=== PATIENT | female | born 1950 | race Caucasian/White ===

== ENCOUNTER → 2016-09-04 | Outpatient (CLI) | payer OTHER ==
[~2016-09-04] MED LIST: ARTHRITIS PAIN650 M3 PO; CELEXA; CHEWABLE ASPIRI81 MG; CIPRO PO; CITALOPRAM HBR40 MG PO; DOCU SOFT100 M1 PO; EFFEXOR37.5 MG PO; FERROUS SULFAT325 MG PO; FERROUS SULFATE PO; FISH OIL 1,0001 CAP PO; IRON160 M1; LISINOPRIL10 MG PO; LORCET PLUS 7.1 EACH PO; POLY IRON PO; SIMVASTATIN40 MG PO; STOOL SOFTENER100 M1 PO; TRIAMTERENE-HC1 EACH PO; TRIAMTERENE/HCT1 TA3 PO; VITAMIN D350000 UNIT PO; VOLTAREN75 MG PO
--- NOTE | ~2016-09-04 | US85 ---
[facility] A Service of [facility] RADIOLOGY TEXT RESULTS PATIENT: SHAE CONTRERAS LOCATION: SNIV : 51 UNIT #: [id number] AGE: [address]: Sugey Lion MD SEX: F ORDER DR: [id number] [place] [address] [id number] O MR#: [id number] Acc #: [id number] NAME: SHAE CONTRERAS : 1950 SEX: F STUDY DATE/TIME: 09/04/2016 17:08 UNIT: [facility] ROOM: STUDY DESCRIPTION: [facility] Attending Physician: Sugey Lion M.D. Referring Physician: Sugey Lion M.D. Ordering Physician: Sugey Lion M.D. Primary Care Physician: Chuckie Tee M.D. MEDICAL IMAGING REPORT This report is preliminary unless electronic signature is present. EXAM Left lower extremity venous duplex Doppler, 09/04/2016 INDICATION Left extremity pain and swelling for 3-4 days. COMPARISON None available. TECHNIQUE Venous ultrasound examination of the left lower extremity was performed using grayscale, spectral Doppler and color flow Doppler imaging. FINDINGS The examination is negative. There is no evidence of left lower extremity deep venous thrombus from the groin to the lower calf. Visualized greater saphenous vein is also patent. IMPRESSION Negative examination. No evidence of left lower extremity deep venous thrombosis. Dictated by... Lj Partida M.D. THIS IS AN ELECTRONICALLY VERIFIED REPORT Lj Partida M.D. at 09/04/2016 10:08 PM ANGEL/josh TD: 09/04/2016 21:58 [facility] A Service [facility] RADIOLOGY TEXT RESULTS PATIENT: SHAE CONTRERAS LOCATION: SN[facility] : 51 UNIT #: [id number] AGE: [address]: Sugey Lion MD SEX: F ORDER DR: JOB #: [id number] MEDICAL IMAGING REPORT Page 1 of 1
== END | disposition home or self-care (01) ==
LOC: SNIV 16:03
DX: M79.605 Pain in left leg (principal); M79.89 Other specified soft tissue disorders
CPT/HCPCS: 93971

== ENCOUNTER 2016-10-01 16:15 | Emergency (ER) | payer OTHER ==
[~2016-10-01 16:15] MED LIST changes: -CELEXA; -EFFEXOR37.5 MG PO; -FERROUS SULFAT325 MG PO; -LORCET PLUS 7.1 EACH PO; -POLY IRON PO; -STOOL SOFTENER100 M1 PO; -TRIAMTERENE-HC1 EACH PO; -VITAMIN D350000 UNIT PO; -VOLTAREN75 MG PO
[2016-10-31] MEDS ORDERED: VOLTAREN75 MG PO (09:41)
[2016-10-31] MEDS ORDERED: CELEXA (15:36)
[2016-12-20] MEDS ORDERED: VITAMIN D350000 UNIT PO (15:59)
[2016-12-20] MEDS ORDERED: TRIAMTERENE-HC1 EACH PO (16:01)
[2016-12-20] MEDS ORDERED: POLY IRON PO (16:01)
[2016-12-20] MEDS ORDERED: STOOL SOFTENER100 M1 PO (16:01)
[2016-12-20] MEDS ORDERED: FERROUS SULFAT325 MG PO (16:02)
[2016-12-20] MEDS ORDERED: LORCET PLUS 7.1 EACH PO (16:02)
[2016-12-20] MEDS ORDERED: EFFEXOR37.5 MG PO (16:03)
[2016-12-22] MEDS ORDERED: LISINOPRIL10 MG PO (12:32)
== END 2016-10-01 16:43 | disposition home or self-care (01) ==
LOC: SED 16:15
DX: M17.12 Unilateral primary osteoarthritis, left knee (principal); I10 Essential (primary) hypertension; E66.9 Obesity, unspecified; Z87.891 Personal history of nicotine dependence; Z88.5 Allergy status to narcotic agent; Z79.82 Long term (current) use of aspirin
CPT/HCPCS: 29530; 99283

== ENCOUNTER → 2016-10-13 | Outpatient (CLI) | payer OTHER ==
[~2016-10-13] MED LIST changes: +CELEXA; +EFFEXOR37.5 MG PO; +FERROUS SULFAT325 MG PO; +LORCET PLUS 7.1 EACH PO; +POLY IRON PO; +STOOL SOFTENER100 M1 PO; +TRIAMTERENE-HC1 EACH PO; +VITAMIN D350000 UNIT PO; +VOLTAREN75 MG PO
--- NOTE | ~2016-10-13 | CR169 ---
[facility]. [facility] A Service of [facility] RADIOLOGY TEXT RESULTS PATIENT: SHAE CONTRERAS LOCATION: [facility] : 51 UNIT #: [id number] AGE: [address]: Morteza Flores MD SEX: F ORDER DR: [id number] [address] [address] [id number] O MR#: [id number] Acc #: [id number] NAME: SHAE CONTRERAS : 1950 SEX: F STUDY DATE/TIME: 10/13/2016 12:33 UNIT: [facility] ROOM: STUDY DESCRIPTION: CR Knee 2 Views Lt Attending Physician: Morteza Flores M.D. Referring Physician: Morteza Flores M.D. Ordering Physician: Morteza Flores M.D. Primary Care Physician: Chuckie Tee M.D. MEDICAL IMAGING REPORT This report is preliminary unless electronic signature is present. EXAM Left knee, 2 views. DATE OF EXAM 10/13/2016 HISTORY Left knee pain and swelling since 09/04/2016. Osteoarthritis left knee. FINDINGS 2 views of the left knee demonstrate no fracture. There is degenerative change with mild narrowing of the medial compartment of the knee. There is small osteophytes extending off the lateral femoral condyle and the posterior aspect of the patella. There is a small knee joint effusion. IMPRESSION 1. Mild degenerative change involving the left knee. No evidence of fracture. 2. Small knee joint effusion. Dictated by... Andrew Monroe M.D. THIS IS AN ELECTRONICALLY VERIFIED REPORT Andrew Monroe M.D. at 10/17/2016 9:19 AM GER/sarai TD: 10/13/2016 21:27 JOB #: [id number] MEDICAL IMAGING REPORT Page 1 of 1
== END | disposition home or self-care (01) ==
LOC: SRAD 12:17
DX: M17.12 Unilateral primary osteoarthritis, left knee (principal); M25.462 Effusion, left knee
CPT/HCPCS: 73560

== ENCOUNTER → 2016-10-31 | Day surgery (SDC) | payer MEDICARE ==
--- NOTE | ~2016-10-31 | OR ---
Unit #: [id number] #: [id number] Patient: SHAE CONTRERAS [id number] [address] [address] [id number] O MR#: [id number] NAME: SHAE CONTRERAS ROOM: Date of Procedure: 10/31/2016 Admission Date: 10/31/2016 Surgeon: Jasen Salcedo M.D. : 1950 Attending Physician: Jasen Salcedo M.D. Referring Physician: Jasen Salcedo M.D. Primary Care Physician: Chuckie Tee M.D. PROCEDURE OPERATIVE NOTE PROCEDURE PERFORMED Colonoscopy to cecum. INDICATIONS Average risk for colorectal cancer. MEDICATIONS Monitored anesthesia. POSTOPERATIVE FINDINGS Normal exam to cecum, good prep. PLAN Repeat colonoscopy in 10 years. DESCRIPTION OF PROCEDURE Patient was explained all the procedure risks and benefits along with risks and benefits of anesthesia. She was brought to the endoscopy room. Propofol anesthesia was given. Rectal exam was done which was normal. Colonoscope was lubricated, passed through the rectum, advanced in the rectum all the way to cecum. Cecum was identified by ileocecal valve and appendiceal orifice. I then tried to pull the scope out, carefully looking. No polyps, masses, or colitis was seen. The mucosa was normal and healthy. I retroflexed in the rectum. Small hemorrhoids seen. Gently, the scope was pulled out. She tolerated it well. No immediate complications were seen. Dictated by... Herve Weinstein/cydney TD: 10/31/2016 12:53 JOB #: [id number] Unit #: [id number] #: [id number] Patient: SHAE CONTRERAS PROCEDURE OPERATIVE NOTE Page 1 of 1 X Jasen Salcedo MD X PROCEDURE OPERATIVE NOTE
== END | disposition home or self-care (01) ==
LOC: COPS 08:43
DX: Z12.11 Encounter for screening for malignant neoplasm of colon (principal); K64.9 Unspecified hemorrhoids; Z86.010 Personal history of colon polyps; Z98.1 Arthrodesis status; Z90.49 Acquired absence of other specified parts of digestive tract; Z98.51 Tubal ligation status; Z88.6 Allergy status to analgesic agent

== ENCOUNTER → 2016-11-24 | Outpatient (CLI) | payer MEDICARE ==
--- NOTE | ~2016-11-24 | MR103 ---
[facility] A Service [facility] RADIOLOGY TEXT RESULTS PATIENT: SHAE CONTRERAS [facility] UNIT #: [id number] AGE: [address]: Sugey Lion MD SEX: F ORDER DR: [id number] [facility] [address] [place], [place] [address] [id number] O MR#: [id number] Acc #: [id number] NAME: SHAE CONTRERAS. : 1950 SEX: F STUDY DATE/TIME: 11/24/2016 19:42 UNIT: [facility] ROOM: STUDY DESCRIPTION: MR Knee Wo Contrast Lt Attending Physician: Sugey Lion M.D. Referring Physician: Sugey Lion M.D. Ordering Physician: Sugey Lion M.D. Primary Care Physician: Chuckie Tee M.D. MRI CENTER REPORT This report is preliminary unless electronic signature is present. EXAM Left knee MRI without contrast 11/24/2016 HISTORY 66-year-old female with bilateral knee pain since 09/04/2016. No prior left knee surgery. COMPARISON Left knee x-rays 10/13/2016 TECHNIQUE Routine unenhanced multiplanar, multisequence high field MR imaging of the left knee was performed. FINDINGS There is a vertical radial tear of the posterior horn/posterior root of the medial meniscus resulting in partial extrusion of the body segment from the medial joint line. Lateral meniscus appears intact. Cruciate and collateral ligaments are intact. Extensor mechanism intact. Small to moderate joint effusion. There is a small popliteal cyst measuring 4.5 cm in length. There is low grade chondromalacia throughout patellofemoral joint. Lateral compartment articular cartilage is intact. There is moderately extensive full-thickness articular cartilage loss along the weightbearing surfaces of the medial compartment with reactive subchondral marrow edema in the medial femoral condyle and medial tibial plateau. Remainder of the bone marrow signal is within normal limits. Visualized musculature is unremarkable. Prominent superficial venous varicosities along the medial aspect of the knee. [facility] A Service [facility] RADIOLOGY TEXT RESULTS PATIENT: SHAE CONTRERAS LOCATION: [facility] : 51 UNIT #: [id number] AGE: [address]: Sugey Lion MD SEX: F ORDER DR: IMPRESSION 1. Vertical radial tear involving the posterior horn/posterior root of the medial meniscus resulting in partial extrusion of the body segment from the medial joint line. 2. No acute ligament injury. 3. Moderately advanced medial compartment arthrosis, detailed above. 4. Small to moderate joint effusion with a 4.5 cm popliteal cyst. 5. 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 6. Prominent venous varicosities along the medial aspect of the knee. Dictated by... Rayo Herbert M.D. THIS IS AN ELECTRONICALLY VERIFIED REPORT Rayo Herbert M.D. at 11/27/2016 6:29 PM ANGELICA/mauro TD: 11/27/2016 16:54 JOB #: [id number] MRI CENTER REPORT Page 1 of 1 COPY
--- NOTE | ~2016-11-24 | MR104 ---
[facility] A Service [facility] RADIOLOGY TEXT RESULTS PATIENT: SHAE CONTRERAS [facility] UNIT #: [id number] AGE: [address]: Sugey Lion MD SEX: F ORDER DR: [id number] [facility] [address] [place], [place] [address] [id number] O MR#: [id number] Acc #: [id number] NAME: SHAE CONTRERAS. : 1950 SEX: F STUDY DATE/TIME: 11/24/2016 20:28 UNIT: [facility] ROOM: STUDY DESCRIPTION: MR Knee Wo Contrast Rt Attending Physician: Suegy Lion M.D. Referring Physician: Sugey Lion M.D. Ordering Physician: Sugey Lion M.D. Primary Care Physician: Chuckie Tee M.D. MRI CENTER REPORT This report is preliminary unless electronic signature is present. EXAM Right knee MRI without contrast 11/24/2016 HISTORY 66-year-old female with bilateral knee pain since 09/04/2016. No prior right knee surgery COMPARISON STUDIES Comparison none. TECHNIQUE Routine unenhanced multiplanar, multisequence high field MR imaging of the right knee was performed. FINDINGS There is degenerative vertical radial tear of the posterior horn of medial meniscus near the posterior root. This results in partial extrusion of the body segment from the medial joint line. Lateral meniscus appears intact. Cruciate and collateral ligaments are intact. Extensor mechanism is intact. Small to moderate joint effusion. There is a popliteal cyst measuring 4.7 cm in length. There is fluid tracking along posterior fascial planes of the leg suggesting popliteal cyst rupture. Low grade chondromalacia noted throughout the patellofemoral joint. Lateral compartment articular cartilage is intact. There is high-grade chondromalacia along the weightbearing surfaces in the medial compartment with reactive subchondral marrow edema in the medial femoral condyle and medial tibial plateau. [facility] A Service [facility] RADIOLOGY TEXT RESULTS PATIENT: SHAE CONTRERAS [facility] UNIT #: [id number] AGE: [address]: Sugey Lion MD SEX: F ORDER DR: Remainder of the bone marrow signal is within expected limits. Visualized musculature is unremarkable. IMPRESSION 1. Degenerative vertical radial tear posterior horn medial meniscus near the posterior root. This results in partial extrusion of the body segment from the medial joint line. 2. No acute ligament injury. 3. Moderately advanced medial compartment arthrosis, detailed above. 4. Low grade patellofemoral chondromalacia. 5. Small to moderate joint effusion, with a 4.7 cm popliteal cyst. There is a small amount of fluid tracking along the posterior fascial planes of the leg, suggesting popliteal cyst rupture. Dictated by... Rayo Herbert M.D. THIS IS AN ELECTRONICALLY VERIFIED REPORT Rayo Herbert M.D. at 11/27/2016 6:29 PM Nessa TD: 11/27/2016 16:49 JOB #: [id number] MRI CENTER REPORT Page 1 of 1 COPY
== END | disposition home or self-care (01) ==
LOC: CMRI 18:33
DX: M25.561 Pain in right knee (principal); M25.562 Pain in left knee; M23.321 Other meniscus derangements, posterior horn of medial meniscus, right knee; M94.261 Chondromalacia, right knee; M25.461 Effusion, right knee; M71.21 Synovial cyst of popliteal space [Baker], right knee; M23.222 Derangement of posterior horn of medial meniscus due to old tear or injury, left knee; M17.0 Bilateral primary osteoarthritis of knee; M25.462 Effusion, left knee; M71.22 Synovial cyst of popliteal space [Baker], left knee; M94.262 Chondromalacia, left knee; I83.92 Asymptomatic varicose veins of left lower extremity
CPT/HCPCS: 73721

== ENCOUNTER → 2016-12-22 | Day surgery (SDC) | payer MEDICARE ==
--- NOTE | ~2016-12-22 | OR ---
Unit #: [id number] #: [id number] Patient: SHAE CONTRERAS T [id number] [address] [place], [place] [address] [id number] O MR#: [id number] NAME: SHAE CONTRERAS ROOM: Date of Procedure: 12/22/2016 Admission Date: 12/22/2016 Surgeon: Morteza Flores M.D. : 1950 Attending Physician: Morteza Flores M.D. Primary Care Physician: Chuckie Tee M.D. OPERATIVE REPORT PREOPERATIVE DIAGNOSES Torn meniscus and degenerative joint disease, right knee. POSTOPERATIVE DIAGNOSES AND FINDINGS 1. Grade 2 to 3 chondromalacia involving the central and medial facet of the patella and grade 2 to 3 chondromalacia involving the trochlea of the femur. 2. Grade 2 to 3 chondromalacia medial compartment. 3. Radial and flap tear involving the posterior third of the medial meniscus. PROCEDURES PERFORMED Arthroscopy, partial medial meniscectomy, and chondroplasty, right knee. HISTORY AND FINDINGS The patient is a 66-year-old, who has been having progressively increasing pain in her right knee with swelling. She had been treated conservatively with medications and injections, and subsequently had MRI which was suggestive of meniscus tear and DJD. As she failed conservative measures, she wants to proceed with arthroscopic evaluation. Procedure was explained including risks of anesthesia and complications of surgery like infection, neurovascular injury, residual symptoms, need for further surgery, also postoperative complications like DVT, residual symptoms, need for further surgery have been explained. She voices understanding and wishes to proceed. DESCRIPTION OF PROCEDURE After induction of general anesthesia, the patient's right knee was examined to varus and valgus stress and was found to be stable in extension and 30 degrees of flexion. The Fer and the pivot shift tests were negative. Then, the right knee was prepped and draped in the usual sterile manner. Time-out was called. Operative site was confirmed after infiltrating the knee joint with 1% Xylocaine with epinephrine. Through a parapatellar tendon approach, arthroscopy was performed. The suprapatellar pouch in the medial and lateral gutter was found to be normal. There were some free chondral fragments floating otherwise unremarkable. The patellar undersurface and the trochlea of the femur were checked revealed grade 2 to 3 chondromalacic changes. The patellar tracking was normal. Medial compartment was checked. Medial compartment revealed a grade 2 to 3 chondromalacic changes involving the weightbearing surface of the medial femoral and tibial condyles. Medial meniscus was probed and was grossly intact except at the posterior third, where there Unit #: [id number] #: [id number] Patient: SHAE CONTRERAS was a radial tear with a flap fragment and the meniscus had a degenerative component to it, so using arthroscopic punch shaver, a partial medial meniscectomy was performed. The remaining meniscus was probed. It was found to be stable. Then using a radiofrequency wand, the chondral surface of the medial compartment was shaved to a smooth stable surface, and the meniscus margin were also stabilized using a wand. Intercondylar notch was checked. ACL and PCL were found to be intact. Lateral compartment was found to be essentially normal. Lateral meniscus was probed and was found to be intact. Then, attention was turned towards the patellofemoral compartment. The patellofemoral compartment was shaved using the radiofrequency wand and the knee joint was thoroughly irrigated. All loose chondral and meniscal fragments were irrigated out and about 20 mL of Marcaine with 80 mg of Depo-Medrol was injected into the knee and 5 mL of Marcaine was injected into the operative portal. Wound was closed with 4-0 nylon. Sterile compression dressing was applied. Blood loss approximately 10 mL. The patient received preoperative antibiotics. No tourniquet was used. She tolerated the procedure well and was transferred to the recovery room in satisfactory condition. POSTOPERATIVE INSTRUCTIONS 1. Ice packs to the left knee and partial weightbearing ambulation with crutches. 2. Percocet 5 mg p.o. q.6 hours p.r.n. and Coumadin 2.5 mg once daily and she will have a PT/INR on 12/27/2016. 3. She was given a followup appointment. Return to my office in one week. If any problems, to contact me. Dictated by... Herve Zuleta/lisa TD: 12/22/2016 19:25 JOB #: [id number] OPERATIVE REPORT Page 1 of 1 X Morteza Flores MD PROCEDURE OPERATIVE NOTE
--- NOTE | ~2016-12-22 | CR63 ---
[facility] A Service of [facility] RADIOLOGY TEXT RESULTS PATIENT: SHAE CONTRERAS LOCATION: [facility] : 51 UNIT #: [id number] AGE: [address]: Morteza Flores MD SEX: F ORDER DR: [id number] [facility] [address] [place], [place] [address] [id number] O MR#: [id number] Acc #: [id number] NAME: SHAE CONTRERAS : 1950 SEX: F STUDY DATE/TIME: 12/22/2016 13:01 UNIT: [facility] ROOM: STUDY DESCRIPTION: CR Chest 2 View Attending Physician: Morteza Flores M.D. Ordering Physician: Morteza Flores M.D. Primary Care Physician: Chuckie Tee M.D. MEDICAL IMAGING REPORT This report is preliminary unless electronic signature is present EXAM Chest 2 views, 12/22/2016 13:01 hours HISTORY 66-year-old with shortness of air today. Preop for knee surgery. COMPARISON 06/05/2016 FINDINGS Upright PA and lateral views of the chest demonstrate heart size within normal limits. There is a stable mildly tortuous aorta. Lung volumes are slightly low. There is stable calcified granulomatous changes. There is no acute pulmonary or pleural finding. IMPRESSION Stable benign calcified granulomatous changes. No acute cardiopulmonary findings. Dictated by... Isabell Figueroa M.D. THIS IS AN ELECTRONICALLY VERIFIED REPORT Isabell Figueroa M.D. at 12/22/2016 10:33 PM Tray TD: 12/22/2016 15:22 JOB #: [id number] MEDICAL IMAGING REPORT Page 1 of 1 COPY
--- NOTE | ~2016-12-22 | EKG ---
PATIENT: SHAE CONTRERAS UNIT #: [id number] Ventricular Rate: 56 BPM Atrial Rate: 56 BPM P-R Interval: 130 ms QRS Duration: 90 ms Q-T Interval: 446 ms QTC Calculation(Bezet): 430 ms P [place]: 35 degrees Calculated R [place]: -22 degrees Calculated T [place]: 38 degrees Diagnosis Line: Sinus bradycardia Diagnosis Line: Otherwise normal ECG Diagnosis Line: When compared with ECG of 17-JUL-2013 12:29, Diagnosis Line: No significant change was found Diagnosis Line: Confirmed by RONI DUBON MD ([id number]) on Diagnosis Line: 12/24/2016 11:14:09 PM INTERPRETING MD: LING MCGARRY
== END | disposition home or self-care (01) ==
LOC: CSUR 12:07
DX: M23.203 Derangement of unspecified medial meniscus due to old tear or injury, right knee (principal); M22.41 Chondromalacia patellae, right knee; E78.5 Hyperlipidemia, unspecified; I12.9 Hypertensive chronic kidney disease with stage 1 through stage 4 chronic kidney disease, or unspecified chronic kidney disease; N18.3 Chronic kidney disease, stage 3 (moderate); D64.9 Anemia, unspecified; Z88.5 Allergy status to narcotic agent; Z98.1 Arthrodesis status; Z90.49 Acquired absence of other specified parts of digestive tract; Z98.51 Tubal ligation status; Z86.010 Personal history of colon polyps; Z79.899 Other long term (current) drug therapy
CPT/HCPCS: 71020; 93005; J0171; J0690; J1030; J1040; J1650; J2250; J3010